=== PATIENT | female | born 1980 | race Hispanic/Latino ===

== ENCOUNTER 2018-01-10 08:23 | Emergency (ER) | payer SELFPAY ==
[2018-01-10 08:33] VITALS: TEMP 98.1
--- NOTE | 2018-01-10 08:45 | ED.PDOC ---
History of Present Illness - General Chief Complaint: Respiratory Problem Stated Complaint: cough Time Seen by Provider: 01/10/18 08:40 Source: patient, Vital Signs reviewed Exam Limitations: no limitations - History of Present Illness Timing/Duration: other - Three days Cough Quality/Degree: severe, dry cough Possible Cause: illness exposure Improving Factors: nothing Worsening Factors: other - deep breathing Associated Symptoms: chest pain/soreness, cough, fever/chills, muscle aches, nasal congestion, sore throat, other - nausea Allergies/Adverse Reactions: Allergies NO KNOWN ALLERGY Allergy (Verified 12/13/15 11:03) Home Medications: Ambulatory Orders Ibuprofen [Motrin Tab] 600 mg PO TID PRN #15 tab 12/13/15 Nitrofurantoin Monohydrate Mac [Macrobid] 100 mg PO BID #14 cap 12/13/15 Benzonatate Perles [Tessalon Perles] 100 mg PO TID PRN #20 cap 01/10/18 Review of Systems - Review of Systems Constitutional: States: fever, malaise EENTM: States: nose congestion, throat pain Respiratory: States: cough. Denies: short of breath Cardiology: States: chest pain Gastrointestinal/Abdominal: States: nausea. Denies: abdominal pain, vomiting Genitourinary: States: no symptoms reported Musculoskeletal: States: muscle pain Skin: Denies: rash Neurological: States: headache Endocrine: States: no symptoms reported Hematologic/Lymphatic: Denies: swollen glands Past Medical History (General) - Patient Medical History Hx Seizures: No Hx Stroke: No Hx Dementia: No Hx Asthma: No Hx of COPD: No Hx Cardiac Disorders: No Hx Congestive Heart Failure: No Hx Pacemaker: No Hx Hypertension: No Hx Thyroid Disease: No Hx Diabetes: No Hx Gastroesophageal Reflux: No Hx Renal Disease: No Hx Cancer: No Hx of HIV: No Hx Hepatitis C: No Hx MRSA: No - Vaccination History Hx Tetanus, Diphtheria Vaccination: Yes Hx Influenza Vaccination: No Hx Pneumococcal Vaccination: No - Social History Hx Tobacco Use: Yes Hx Chewing Tobacco Use: No Hx Alcohol Use: No Hx Substance Use: No Hx Substance Use Treatment: No Hx Depression: No Hx Physical Abuse: No Hx Emotional Abuse: No Hx Suspected Abuse: No - Female History Patient is a Female of Child Bearing Age (10 -59 yrs old): Yes Hx Last Menstrual Period: 11/15/15 Patient : No - Triage Comment ED Triage Comment: LMP "2 weeks ago" Family Medical History - Family History Mother Family History: No Known Living Status: Unknown Physical Exam - Physical Exam General Appearance: Alert, Anxious, Obvious distress Eye Exam: bilateral normal ENT Exam: pharynx normal, nasal drainage Neck: non-tender, full range of motion Respiratory: lungs clear, normal breath sounds, no respiratory distress, other - tenderness to palpation Cardiovascular/Chest: normal peripheral pulses, regular rate, rhythm, no edema Gastrointestinal/Abdominal: normal bowel sounds, non tender, soft Extremity: normal range of motion, non-tender, no pedal edema Neurologic: alert, normal mood/affect, oriented x 3 Skin Exam: normal color, warm/dry Lymphatic: no adenopathy Departure - Departure Clinical Impression: Influenza Disposition: Discharge to Home or Self Care Condition: Good Departure Forms: ED Discharge - Pt. Copy, Patient Portal Self Enrollment Prescriptions: Benzonatate Perles [Tessalon Perles] 100 mg PO TID PRN #20 cap PRN Reason: Cough Home Medications: Ambulatory Orders Ibuprofen [Motrin Tab] 600 mg PO TID PRN #15 tab 12/13/15 Nitrofurantoin Monohydrate Mac [Macrobid] 100 mg PO BID #14 cap 12/13/15 Benzonatate Perles [Tessalon Perles] 100 mg PO TID PRN #20 cap 01/10/18
--- NOTE | 2018-01-10 09:09 | RAD ---
EXAM DESCRIPTION: Chest,1 View CLINICAL HISTORY: cough COMPARISON: None Available. FINDINGS: Single upright portable frontal view of the chest. Cardiomediastinal silhouette and pulmonary vascularity are within normal limits. Lungs are clear without focal consolidations. Bilateral costophrenic angles are sharp. No pneumothorax. Visualized osseous structures show no destructive lesions. IMPRESSION: No radiographic evidence for acute cardiopulmonary process. Electronically signed by: Froy Jacome MD 01/10/2018 9:08 AM [employer]
[2018-01-10 09:37] VITALS: BP 146/96; O2SAT 100
== END 2018-01-10 09:46 | disposition home or self-care (01) ==
LOC: ER 08:23
DX: J11.1 Influenza due to unidentified influenza virus with other respiratory manifestations (principal); Z87.891 Personal history of nicotine dependence